=== PATIENT | female | born 1970 | race Two or more races ===

== ENCOUNTER 2024-01-07 13:40 | Outpatient (AMB) | payer MEDICAID, SELFPAY ==
--- NOTE | 2024-01-07 13:50 | PD.RESCLINIC ---
Vital Signs 01/07/24 13:51 Height 1.57 m Height Method Stated Weight 83.971 kg Weight Measurement Method Standing Scale BMI 34.0 BP 129/74 Blood Pressure Source Automatic Cuff Blood Pressure Location Left Upper Arm Position Sitting Respiration 18 Pulse 79 Pulse Source Monitor Temp 98.2 F Temp Source Temporal Artery Scan Pulse Oximetry (%) 97 Oxygen Delivery Method Room Air Allergies/Meds Allergies & Medications Allergies No Known Allergies Allergy (Verified 03/13/24 13:21) Medication Reconciliation pen needle, diabetic 32 gauge x 1/4 (Comfort EZ Pen [place]) #100 ea 01/07/24 [Rx Confirmed 03/13/24] blood-glucose meter,continuous (FreeStyle Cecilia 3 [place]) #1 ea 01/14/24 [Rx Confirmed 03/13/24] blood-glucose sensor (FreeStyle Cecilia 3 Sensor device) #2 ea 01/14/24 [Rx Confirmed 03/13/24] atorvastatin 80 mg tablet 80 mg PO QHS #60 tabs 01/27/24 [Rx Confirmed 03/13/24] dapagliflozin propanediol 10 mg tablet 10 mg PO QAM #30 tabs 01/27/24 [Rx Confirmed 03/13/24] famotidine 20 mg tablet 20 mg PO QDAY #30 tabs 01/27/24 [Rx Confirmed 03/13/24] hydrochlorothiazide 12.5 mg capsule 12.5 mg PO QDAY 30 days #30 caps 01/27/24 [Rx Confirmed 03/13/24] insulin degludec 100 unit/mL (3 mL) subcutaneous pen (Tresiba FlexTouch U-100 insulin) 40 unit (0.4 mL) subcut QHS #15 mL 01/27/24 [Rx Confirmed 03/13/24] losartan 100 mg tablet 100 mg PO QDAY 2 months #60 tabs 01/27/24 [Rx Confirmed 03/13/24] metformin 1,000 mg tablet,extended release 24hr (osmotic) 1,000 mg PO BID #60 tabs 01/27/24 [Rx Confirmed 03/13/24] metoprolol tartrate 25 mg tablet 25 mg PO BID 2 months #120 tabs 01/27/24 [Rx Confirmed 03/13/24] pregabalin 75 mg capsule (Lyrica) 150 mg (2 x 75 mg) PO BID 2 months #240 caps 01/27/24 [Rx Confirmed 03/13/24] MA Intake Visit Data Collection New Patient or Established: Established Patient (seen at [facility] within 3 years) Seen by Clinical Staff ONLY (RN/MA): No Oil Gas And Pipe Tester Required: No PCP or OBGYN visit in last 3 months: Yes Do You Feel Safe at Home: Yes Authorities Contacted: N/A Smoking Status Smoking Status: Never smoker Immunization / Flu Flu Vaccine in the Last 12 Months: No Flu Vaccine Exclusion Criteria: Refused by Patient Past Medical History Social History SMOKING STATUS: Smoking status: Never smoker Travel Risk Travel Hx Recent Travel: No Patient Portal Questionaires Social History Tobacco History Smoking Status: Never smoker Domestic Abuse History Do You Feel Safe at Home: Yes Review of Systems Report any current symptoms Only answer those that you have currently: Past Medical History Past Medical History Have you ever been diagnosed with any of the following: History of Present Illness HPI Narrative This is a 53 y/o F with PMH of DMT2, HTN, peripheral neuropathy and obesity. This patient is not new to the practice however is new to me. SHe is a pleasant lady, retired that takes care of her granddaughter. I take care of her and daughter as well. Today patient complains of blood sugar control and constant headache. No other symptoms. 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 Sensation grossly intact. Assessment & Plan Diagnosis / Problem List (1) Diabetes type 2, uncontrolled: Status: Acute Qualifiers: Glycemic state: with hyperglycemia Qualified Code(s): E11.65 - Type 2 diabetes mellitus with hyperglycemia Assessment & Plan: A1c 11.5 on 01/19 ACR 6 on 01/19 Plan: start farxiga start tresiba 30u at HS start metformin 1000mg BID CGM sent repeat a1c in 3 months (2) Hyperlipidemia: Status: Acute Assessment & Plan: trig 177 LDL 101 Plan: cont atorvastatin 80mg HS repeat LP in 3 months (3) Hypertension: Status: Acute Assessment & Plan: controlled Plan: cont losartan 100mg QD Orders: Orders Comprehensive Metabolic Panel 4 Weeks E78.5 - Hyperlipidemia, unspecified, I10 - Essential (primary) hypertension, E11.65 - Type 2 diabetes mellitus with hyperglycemia Ambulatory Hemoglobin A1C 4 Weeks E11.65 - Type 2 diabetes mellitus with hyperglycemia, E78.5 - Hyperlipidemia, unspecified, I10 - Essential (primary) hypertension Lipid Panel 4 Weeks CBC 4 Weeks E78.5 - Hyperlipidemia, unspecified, I10 - Essential (primary) hypertension, E11.65 - Type 2 diabetes mellitus with hyperglycemia Thyroid Stimulating Hormone 4 Weeks E78.5 - Hyperlipidemia, unspecified, E11.65 - Type 2 diabetes mellitus with hyperglycemia Free T4 (Free Thyroxine) 4 Weeks E78.5 - Hyperlipidemia, unspecified, E11.65 - Type 2 diabetes mellitus with hyperglycemia Ambulatory Hemoglobin A1C 01/07/24 E78.5 - Hyperlipidemia, unspecified, I10 - Essential (primary) hypertension, E11.65 - Type 2 diabetes mellitus with hyperglycemia Additional Assessment Attending note: I, Rodriguez Johnston MD, attest that I was physically present for the castillo portions of the service and evaluated the patient with the resident and I reviewed and discussed the case with the resident and agree with the resident's findings and plans of care as documented above. Follow-up visit. Diabetes self-care reviewed including diet, exercise, footcare, eye care. Most recent hemoglobin A1c of 11.5. Patient regimen changed to Tresiba 30 units nightly, metformin 1000 units twice daily and Farxiga. We will order a CGM today. Recheck labs in 3 months. Continue atorvastatin 80 mg nightly for lipid control. Blood pressure under reasonable control with losartan 100 mg daily. Rodriguez Johnston MD Physician Billing Established Patient Established Patient: E/M Level 3-CPT 96939 Office Procedures [facility] Level of Care Nursing/Assessment Patient Status: Established Patient Nursing Assessment/Reassessment: Medication Reconciliation, Update PMH in EMR and Vital Signs Coordination of Care: Complex Care and Chronic Disease 1-5, Consent,records obtained, informed consent, Lab and Imaging orders and Staff clarify orders Established Patient Charge Established Patient Point Assignment: 85 Established Patient Point Charge: Level 3 (80-115)
[2024-01-07 13:51] VITALS: BP 129/74; PULSE 79; RESP 18; TEMP 36.8; O2SAT 97; BMI 34.0
== END 2024-01-07 14:18 | disposition home or self-care (01) ==
LOC: HODAHC 13:40
PROVIDERS: Supervising Provider Internal Medicine; Visit Provider Student in an Organized Health Care Education/Training Program
DX: E11.65 Type 2 diabetes mellitus with hyperglycemia (principal); E78.5 Hyperlipidemia, unspecified; I10 Essential (primary) hypertension; Z79.4 Long term (current) use of insulin
CPT/HCPCS: 99213; G0463

== ENCOUNTER 2024-01-14 13:35 | Outpatient (AMB) | payer MEDICAID, SELFPAY ==
[2024-01-14 13:41] VITALS: BP 128/76; PULSE 73; RESP 19; TEMP 36.5; O2SAT 96; BMI 34.1
--- NOTE | 2024-01-14 13:41 | PD.RESCLINIC ---
Vital Signs 01/14/24 13:41 Height 1.57 m Height Method Stated Weight 84.085 kg Weight Measurement Method Standing Scale BMI 34.1 BP 128/76 Blood Pressure Source Automatic Cuff Blood Pressure Location Left Upper Arm Position Sitting Respiration 19 Pulse 73 Pulse Source Monitor Temp 97.7 F Temp Source Oral Pulse Oximetry (%) 96 Oxygen Delivery Method Room Air Allergies/Meds Allergies & Medications Allergies No Known Allergies Allergy (Verified 03/13/24 13:21) Medication Reconciliation pen needle, diabetic 32 gauge x 1/4 (Comfort EZ Pen [place]) #100 ea 01/07/24 [Rx Confirmed 03/13/24] blood-glucose meter,continuous (FreeStyle Cecilia 3 [place]) #1 ea 01/14/24 [Rx Confirmed 03/13/24] blood-glucose sensor (FreeStyle Cecilia 3 Sensor device) #2 ea 01/14/24 [Rx Confirmed 03/13/24] atorvastatin 80 mg tablet 80 mg PO QHS #60 tabs 01/27/24 [Rx Confirmed 03/13/24] dapagliflozin propanediol 10 mg tablet 10 mg PO QAM #30 tabs 01/27/24 [Rx Confirmed 03/13/24] famotidine 20 mg tablet 20 mg PO QDAY #30 tabs 01/27/24 [Rx Confirmed 03/13/24] hydrochlorothiazide 12.5 mg capsule 12.5 mg PO QDAY 30 days #30 caps 01/27/24 [Rx Confirmed 03/13/24] insulin degludec 100 unit/mL (3 mL) subcutaneous pen (Tresiba FlexTouch U-100 insulin) 40 unit (0.4 mL) subcut QHS #15 mL 01/27/24 [Rx Confirmed 03/13/24] losartan 100 mg tablet 100 mg PO QDAY 2 months #60 tabs 01/27/24 [Rx Confirmed 03/13/24] metformin 1,000 mg tablet,extended release 24hr (osmotic) 1,000 mg PO BID #60 tabs 01/27/24 [Rx Confirmed 03/13/24] metoprolol tartrate 25 mg tablet 25 mg PO BID 2 months #120 tabs 01/27/24 [Rx Confirmed 03/13/24] pregabalin 75 mg capsule (Lyrica) 150 mg (2 x 75 mg) PO BID 2 months #240 caps 01/27/24 [Rx Confirmed 03/13/24] MA Intake Visit Data Collection New Patient or Established: Established Patient (seen at [facility] within 3 years) Seen by Clinical Staff ONLY (RN/GIOVANNA): No Pain Present Currently: No Pain scale:: 0 Pain Scale Used: Lujan-Steiner/Numerical PCP or OBGYN visit in last 3 months: Yes Do You Feel Safe at Home: Yes Authorities Contacted: N/A Smoking Status Smoking Status: Never smoker Immunization / Flu Flu Vaccine in the Last 12 Months: No Flu Vaccine Exclusion Criteria: No Exclusion Criteria Past Medical History Social History SMOKING STATUS: Smoking status: Never smoker Patient Portal Questionaires Social History Tobacco History Smoking Status: Never smoker Domestic Abuse History Do You Feel Safe at Home: Yes Review of Systems Report any current symptoms Only answer those that you have currently: Past Medical History Past Medical History Have you ever been diagnosed with any of the following: History of Present Illness HPI Narrative This is a 53 y/o F with PMH of DMT2, HTN, peripheral neuropathy and obesity. This patient is not new to the practice however is new to me. SHe is a pleasant lady, retired that takes care of her granddaughter. I take care of her and daughter as well. Today patient complains of blood sugar control and constant headache. No other symptoms. 01/13: Patient here to today for follow up. Glucose remains high. No additional problems. 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 Sensation grossly intact. Assessment & Plan Diagnosis / Problem List (1) Diabetes type 2, uncontrolled: Status: Acute Qualifiers: Glycemic state: with hyperglycemia Qualified Code(s): E11.65 - Type 2 diabetes mellitus with hyperglycemia Assessment & Plan: A1c 11.5 on 01/19 ACR 6 on 01/19 Plan: start farxiga start tresiba 30u at HS start metformin 1000mg BID CGM sent repeat a1c in 3 months (2) Hyperlipidemia: Status: Acute Assessment & Plan: trig 177 LDL 101 Plan: cont atorvastatin 80mg HS repeat LP in 3 months (3) Hypertension: Status: Acute Assessment & Plan: controlled Plan: cont losartan 100mg QD Additional Assessment Attending note: I, Rodriguez Johnston MD, attest that I was physically present for the castillo portions of the service and evaluated the patient with the resident and I reviewed and discussed the case with the resident and agree with the resident's findings and plans of care as documented above. 1 week follow-up. Has tolerated new medications. Instructed on CGM use. Diabetes self-care reviewed including diet, exercise, footcare, eye care. Blood sugar readings remaining high but up to see improvement with new medications. Blood pressure remains well-controlled and in good range on angiotensin receptor joe. Follow-up in 3 months. Rodriguez Johnston MD Physician Billing Established Patient Established Patient: E/M Level 3-CPT 76822 Office Procedures [facility] Level of Care Nursing/Assessment Patient Status: Established Patient Nursing Assessment/Reassessment: Medication Reconciliation, Update PMH in EMR and Vital Signs Coordination of Care: Complex Care and Chronic Disease 1-5, Education Complex Pt/Fam, Results/Orders obtained and Staff clarify orders Established Patient Charge Established Patient Point Assignment: 90 Established Patient Point Charge: EP Level 3 (80-115)
== END 2024-01-14 14:25 | disposition home or self-care (01) ==
LOC: HODAHC 13:35
PROVIDERS: PCP Student in an Organized Health Care Education/Training Program; Referring Provider Student in an Organized Health Care Education/Training Program; Supervising Provider Internal Medicine; Visit Provider Student in an Organized Health Care Education/Training Program
DX: E11.65 Type 2 diabetes mellitus with hyperglycemia (principal); E78.5 Hyperlipidemia, unspecified; I10 Essential (primary) hypertension
CPT/HCPCS: 99213; G0463

== ENCOUNTER 2024-03-03 14:27 | Outpatient (AMB) | payer MEDICAID, SELFPAY ==
[2024-03-03 14:21] VITALS: BP 149/72; PULSE 68; RESP 18; TEMP 36.2; O2SAT 97; BMI 35.2
--- NOTE | 2024-03-03 14:21 | ACNOTE_ITS ---
Vital Signs 03/03/24 14:21 Height 1.57 m Height Method Stated Weight 86.693 kg Weight Measurement Method Standing Scale BMI 35.2 BP 149/72 H Blood Pressure Source Automatic Cuff Blood Pressure Location Left Upper Arm Position Sitting Respiration 18 Pulse 68 Pulse Source Monitor Temp 97.1 F Temp Source Oral Pulse Oximetry (%) 97 Oxygen Delivery Method Room Air Allergies/Meds Allergies & Medications Allergies No Known Allergies Allergy (Verified 03/13/24 13:21) Medication Reconciliation pen needle, diabetic 32 gauge x 1/4 (Comfort EZ Pen [place]) #100 ea 01/07/24 [Rx Confirmed 03/13/24] blood-glucose meter,continuous (FreeStyle Cecilia 3 [place]) #1 ea 01/14/24 [Rx Confirmed 03/13/24] blood-glucose sensor (FreeStyle Cecilia 3 Sensor device) #2 ea 01/14/24 [Rx Confirmed 03/13/24] atorvastatin 80 mg tablet 80 mg PO QHS #60 tabs 01/27/24 [Rx Confirmed 03/13/24] dapagliflozin propanediol 10 mg tablet 10 mg PO QAM #30 tabs 01/27/24 [Rx Confirmed 03/13/24] famotidine 20 mg tablet 20 mg PO QDAY #30 tabs 01/27/24 [Rx Confirmed 03/13/24] hydrochlorothiazide 12.5 mg capsule 12.5 mg PO QDAY 30 days #30 caps 01/27/24 [Rx Confirmed 03/13/24] insulin degludec 100 unit/mL (3 mL) subcutaneous pen (Tresiba FlexTouch U-100 insulin) 40 unit (0.4 mL) subcut QHS #15 mL 01/27/24 [Rx Confirmed 03/13/24] losartan 100 mg tablet 100 mg PO QDAY 2 months #60 tabs 01/27/24 [Rx Confirmed 03/13/24] metformin 1,000 mg tablet,extended release 24hr (osmotic) 1,000 mg PO BID #60 tabs 01/27/24 [Rx Confirmed 03/13/24] metoprolol tartrate 25 mg tablet 25 mg PO BID 2 months #120 tabs 01/27/24 [Rx Confirmed 03/13/24] pregabalin 75 mg capsule (Lyrica) 150 mg (2 x 75 mg) PO BID 2 months #240 caps 01/27/24 [Rx Confirmed 03/13/24] MA Intake Visit Data Collection New Patient or Established: Established Patient (seen at [facility] within 3 years) Seen by Clinical Staff ONLY (RN/GIOVANNA): No Pain Present Currently: No Demolition Specialist Required: Yes PCP or OBGYN visit in last 3 months: Yes Smoking Status Smoking Status: Never smoker Immunization / Flu Flu Vaccine in the Last 12 Months: Yes Flu Vaccine Exclusion Criteria: Already Received Past Medical History Social History SMOKING STATUS: Smoking status: Never smoker Patient Portal Questionaires Social History Tobacco History Smoking Status: Never smoker Review of Systems Report any current symptoms Only answer those that you have currently: Past Medical History Past Medical History Have you ever been diagnosed with any of the following: History of Present Illness HPI Narrative This is a 53 y/o F with PMH of DMT2, HTN, peripheral neuropathy and obesity. This patient is not new to the practice however is new to me. SHe is a pleasant lady, retired that takes care of her granddaughter. I take care of her and daughter as well. Today patient complains of blood sugar control and constant headache. No other symptoms. 01/13: Patient here to today for follow up. Glucose remains high, fasting glucose in the 200s. No additional problems. 01/26: Patient is here today for diabetes follow up. Patient fasting glucose numbers are normalizing. Fasting glucose in the 120s. No more headaches. Patient feels better in the mornings. 03/03/24: Patient here for f/u. Feels much better, does complain of headaches and L eye pain. Patient does not have previous hx of glaucoma. Her glucose is better controlled, fasting in the 130s. Patient is complaint with medication. 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 Sensation grossly intact. Assessment & Plan Diagnosis / Problem List (1) Diabetes type 2, uncontrolled: Status: Acute Qualifiers: Glycemic state: with hyperglycemia Qualified Code(s): E11.65 - Type 2 diabetes mellitus with hyperglycemia Assessment & Plan: A1c 11.5 on 01/19 ACR 6 on 01/19 fasting glucose numbers improving ave 120s Plan: cont farxiga cont tresiba 30u at HS cont metformin 1000mg BID CGM sent repeat a1c in 3 months (2) Hyperlipidemia: Status: Acute Assessment & Plan: trig 177 LDL 101 Plan: cont atorvastatin 80mg HS repeat LP in 3 months (3) Hypertension: Status: Acute Assessment & Plan: controlled Plan: cont losartan 100mg QD (4) Left eye pain: Status: Acute Assessment & Plan: L eye pain ,mild sensitivity to light concern for glaucoma Plan: -ophthalmology referral (5) Insulin dependent diabetes mellitus: Status: Acute Assessment & Plan: see above Orders: Referrals Ophthalmology H57.12 - Ocular pain, left eye Additional Assessment Attending note: I, Rodriguez Johnston MD, attest that I was physically present for the castillo portions of the service and evaluated the patient with the resident and I reviewed and discussed the case with the resident and agree with the resident's findings and plans of care as documented above. Follow-up visit. Diabetes self- care reviewed including diet, exercise, footcare, eye care. Fasting blood sugars are improving. Continue present regimen. Will repeat hemoglobin A1c in 3 months. Tolerating atorvastatin. Blood pressure under reasonable control. On angiotensin receptor joe. Patient complaining of some mild left eye pain with light sensitivity. We will make a referral to ophthalmology. Rodriguez Johnston MD Physician Billing Established Patient Established Patient: E/M Level 3-CPT 73335 Office Procedures [facility] Level of Care Nursing/Assessment Patient Status: Established Patient Nursing Assessment/Reassessment: Medication Reconciliation, Update PMH in EMR and Vital Signs Coordination of Care: Complex Care and Chronic Disease 1-5, Consent,records obtained, informed consent, Education Simp Pt/Fam, 1 Ins Authorization, Lab and Imaging orders, Ref for ancillary service and Staff clarify orders Established Patient Charge Established Patient Point Assignment: 135 Established Patient Point Charge: Level 4 (120-155)
== END 2024-03-03 15:07 | disposition home or self-care (01) ==
LOC: HODAHC 14:27
PROVIDERS: PCP Student in an Organized Health Care Education/Training Program; Referring Provider Student in an Organized Health Care Education/Training Program; Supervising Provider Internal Medicine; Visit Provider Student in an Organized Health Care Education/Training Program
DX: H57.12 Ocular pain, left eye (principal); R51.9 Headache, unspecified; E11.65 Type 2 diabetes mellitus with hyperglycemia; Z79.84 Long term (current) use of oral hypoglycemic drugs; Z79.4 Long term (current) use of insulin; E78.5 Hyperlipidemia, unspecified; I10 Essential (primary) hypertension
CPT/HCPCS: 99214; G0463

== ENCOUNTER 2024-03-31 13:34 | Outpatient (AMB) | payer MEDICAID, SELFPAY ==
--- NOTE | 2024-03-31 13:55 | PD.RESCLINIC ---
Vital Signs 03/31/24 13:56 Height 1.7 m Height Method Stated Weight 84.992 kg Weight Measurement Method Standing Scale BMI 29.4 BP 133/75 H Blood Pressure Source Automatic Cuff Blood Pressure Location Left Upper Arm Position Sitting Respiration 18 Pulse 74 Pulse Source Monitor Temp 98.2 F Temp Source Temporal Artery Scan Pulse Oximetry (%) 95 Oxygen Delivery Method Room Air Allergies/Meds Allergies & Medications Allergies No Known Allergies Allergy (Verified 03/31/24 13:56) Medication Reconciliation pen needle, diabetic 32 gauge x 1/4 (Comfort EZ Pen [place]) #100 ea 01/07/24 [Rx Confirmed 03/31/24] blood-glucose meter,continuous (FreeStyle Cecilia 3 [place]) #1 ea 01/14/24 [Rx Confirmed 03/31/24] blood-glucose sensor (FreeStyle Cecilia 3 Sensor device) #2 ea 01/14/24 [Rx Confirmed 03/31/24] atorvastatin 80 mg tablet 80 mg PO QHS #60 tabs 01/27/24 [Rx Confirmed 03/31/24] dapagliflozin propanediol 10 mg tablet 10 mg PO QAM #30 tabs 01/27/24 [Rx Confirmed 03/31/24] famotidine 20 mg tablet 20 mg PO QDAY #30 tabs 01/27/24 [Rx Confirmed 03/31/24] hydrochlorothiazide 12.5 mg capsule 12.5 mg PO QDAY 30 days #30 caps 01/27/24 [Rx Confirmed 03/31/24] insulin degludec 100 unit/mL (3 mL) subcutaneous pen (Tresiba FlexTouch U-100 insulin) 40 unit (0.4 mL) subcut QHS #15 mL 01/27/24 [Rx Confirmed 03/31/24] losartan 100 mg tablet 100 mg PO QDAY 2 months #60 tabs 01/27/24 [Rx Confirmed 03/31/24] metformin 1,000 mg tablet,extended release 24hr (osmotic) 1,000 mg PO BID #60 tabs 01/27/24 [Rx Confirmed 03/31/24] metoprolol tartrate 25 mg tablet 25 mg PO BID 2 months #120 tabs 01/27/24 [Rx Confirmed 03/31/24] pregabalin 75 mg capsule (Lyrica) 150 mg (2 x 75 mg) PO BID 2 months #240 caps 01/27/24 [Rx Confirmed 03/31/24] MA Intake Visit Data Collection New Patient or Established: Established Patient (seen at [facility] within 3 years) Seen by Clinical Staff ONLY (RN/MA): Yes Pain Present Currently: No Pain Scale Used: Lujan-Steiner/Numerical Formula Checker Required: Yes PCP or OBGYN visit in last 3 months: Yes Hx Now: No Do You Feel Safe at Home: Yes Authorities Contacted: N/A Smoking Status Smoking Status: Never smoker Immunization / Flu Flu Vaccine in the Last 12 Months: No Flu Vaccine Exclusion Criteria: No Exclusion Criteria Past Medical History Social History SMOKING STATUS: Smoking status: Never smoker Patient Portal Questionaires Social History Tobacco History Smoking Status: Never smoker Domestic Abuse History Do You Feel Safe at Home: Yes Review of Systems Report any current symptoms Only answer those that you have currently: Past Medical History Past Medical History Have you ever been diagnosed with any of the following: History of Present Illness HPI Narrative Encounter opened in error. Patient not seen on this date of service by physician. Assessment & Plan Additional Assessment Encounter opened in error. Patient not seen on this date of service by physician. Rodriguez Johnston MD Office Procedures [facility] Level of Care Nursing/Assessment Patient Status: Established Patient Nursing Assessment/Reassessment: Medication Reconciliation, Update PMH in EMR and Vital Signs Coordination of Care: Staff clarify orders Established Patient Charge Established Patient Point Assignment: 40 Established Patient Point Charge: EP Level 2 (40-75)
[2024-03-31 13:56] VITALS: BP 133/75; PULSE 74; RESP 18; TEMP 36.8; O2SAT 95; BMI 29.4
== END 2024-03-31 15:30 | disposition home or self-care (01) ==
LOC: HODAHC 13:34
PROVIDERS: PCP Student in an Organized Health Care Education/Training Program; Referring Provider Student in an Organized Health Care Education/Training Program; Supervising Provider Internal Medicine; Visit Provider Student in an Organized Health Care Education/Training Program
DX: Z76.89 Persons encountering health services in other specified circumstances (principal)
CPT/HCPCS: 99212; 99213; G0463

== ENCOUNTER 2024-04-07 14:27 | Outpatient (AMB) | payer MEDICAID, SELFPAY ==
[2024-04-07 14:14] VITALS: BP 123/73; PULSE 65; RESP 18; TEMP 36.8; O2SAT 95; BMI 34.4
--- NOTE | 2024-04-07 14:14 | ACNOTE_ITS ---
Vital Signs 04/07/24 14:14 Height 1.57 m Height Method Stated Weight 84.992 kg Weight Measurement Method Standing Scale BMI 34.4 BP 123/73 Blood Pressure Source Automatic Cuff Blood Pressure Location Left Upper Arm Position Sitting Respiration 18 Pulse 65 Pulse Source Monitor Temp 98.3 F Temp Source Oral Pulse Oximetry (%) 95 Oxygen Delivery Method Room Air Allergies/Meds Allergies & Medications Allergies No Known Allergies Allergy (Verified 05/05/24 13:50) Medication Reconciliation blood-glucose meter,continuous (FreeStyle Cecilia 3 [place]) #1 ea 01/14/24 [Rx Confirmed 05/05/24] blood-glucose sensor (FreeStyle Cecilia 3 Sensor device) #2 ea 01/14/24 [Rx Confirmed 05/05/24] atorvastatin 80 mg tablet 80 mg PO QHS #60 tabs 04/07/24 [Rx Confirmed 05/05/24] dapagliflozin propanediol 10 mg tablet 10 mg PO QAM #30 tabs 04/07/24 [Rx Confirmed 05/05/24] diclofenac sodium 1 % topical gel (Aleve (diclofenac)) 4 g topical QID #100 grams 04/07/24 [Rx Confirmed 05/05/24] insulin degludec 100 unit/mL (3 mL) subcutaneous pen (Tresiba FlexTouch U-100 insulin) 40 unit (0.4 mL) subcut QHS #15 mL 04/07/24 [Rx Confirmed 05/05/24] losartan 100 mg tablet 100 mg PO QDAY 2 months #60 tabs 04/07/24 [Rx Confirmed 05/05/24] metformin 1,000 mg tablet,extended release 24hr (osmotic) 1,000 mg PO BID #60 tabs 04/07/24 [Rx Confirmed 05/05/24] metoprolol tartrate 25 mg tablet 25 mg PO BID 2 months #120 tabs 04/07/24 [Rx Confirmed 05/05/24] omeprazole 40 mg capsule,delayed release 40 mg PO QDAY #30 caps 04/07/24 [Rx Confirmed 05/05/24] pen needle, diabetic 32 gauge x 1/4 (Comfort EZ Pen [place]) #100 ea 04/07/24 [Rx Confirmed 05/05/24] acetaminophen 650 mg tablet,extended release 650 mg PO Q8H PRN joint pain #90 tabs 04/21/24 [Rx Confirmed 02/07/25] hydrochlorothiazide 12.5 mg capsule 25 mg (2 x 12.5 mg) PO QDAY 30 days #60 caps 04/21/24 [Rx Confirmed 05/05/24] insulin lispro 100 unit/mL subcutaneous pen, sensor (Humalog Tempo Pen (U-100) Insulin) 3 unit (0.03 mL) subcut TID #15 mL 04/21/24 [Rx Confirmed 05/05/24] lidocaine 5 % topical patch 3 patch topical QDAY #30 ea 04/21/24 [Rx Confirmed 05/05/24] gabapentin 100 mg capsule 300 mg (3 x 100 mg) PO TID #90 caps 05/05/24 [Rx] GIOVANNA Intake Visit Data Collection New Patient or Established: Established Patient (seen at [facility] within 3 years) Seen by Clinical Staff ONLY (RN/GIOVANNA): No Pain Present Currently: No Pain scale:: 0 Pain Scale Used: Lujan-Steiner/Numerical Cigar Packing Examiner Required: Yes PCP or OBGYN visit in last 3 months: Yes Hx Now: No Do You Feel Safe at Home: Yes Authorities Contacted: N/A Smoking Status Smoking Status: Never smoker Immunization / Flu Flu Vaccine in the Last 12 Months: No Flu Vaccine Exclusion Criteria: No Exclusion Criteria Past Medical History Social History SMOKING STATUS: Smoking status: Never smoker Patient Portal Questionaires Social History Tobacco History Smoking Status: Never smoker Domestic Abuse History Do You Feel Safe at Home: Yes Review of Systems Report any current symptoms Only answer those that you have currently: Past Medical History Past Medical History Have you ever been diagnosed with any of the following: History of Present Illness HPI Narrative This is a 53 y/o F with PMH of DMT2, HTN, peripheral neuropathy and obesity. This patient is not new to the practice however is new to me. SHe is a pleasant lady, retired that takes care of her granddaughter. I take care of her and daughter as well. Today patient complains of blood sugar control and constant headache. No other symptoms. 01/13: Patient here to today for follow up. Glucose remains high, fasting glucose in the 200s. No additional problems. 01/26: Patient is here today for diabetes follow up. Patient fasting glucose numbers are normalizing. Fasting glucose in the 120s. No more headaches. Patient feels better in the mornings. 03/03/24: Patient here for f/u. Feels much better, does complain of headaches and L eye pain. Patient does not have previous hx of glaucoma. Her glucose is better controlled, fasting in the 130s. Patient is complaint with medication. 04/07/24: Patient here for follow up. Denies any acute symptoms today. Glucose levels are still midly elevated. Pending a1c level. 05/05/2024: Patient her for follow up after change of medications. Patient feels much better today. Only complains of burning sensation of the sole of the feet. Headaches have improved. Patient is tolerating meal time insulin, no episode of hypoglycemia. 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 Sensation grossly intact. Assessment & Plan Diagnosis / Problem List (1) Arthritis: Status: Acute (2) Insulin dependent diabetes mellitus: Status: Acute Assessment & Plan: uncontrolled, A1c was above 10 Home glucose log shows post-pandrial glucose below 180 after adding meal time insulin Plan: -decrease degludec from 40u to 35u -cont lispro 3u at meal time -cont metformin -cont log -repeat A1c and ACR in 3 months (3) Diabetic neuropathy: Status: Acute Qualifiers: Diabetes mellitus type: type 2 Diabetes mellitus complication detail: with other neurological complication Qualified Code(s): E11.49 - Type 2 diabetes mellitus with other diabetic neurological complication Assessment & Plan: BLE burning sensation of the soles, worse at night Plan: -increase gabapentin to 300mg TID -if patient fails we shall consider lyrica (4) Hyperlipidemia: Status: Acute Assessment & Plan: well controlled Plan: -cont statin therapy (5) Hypertension: Status: Acute Assessment & Plan: controlled after increasing HCTZ Plan: -continue current management -lifestyle modifications were recommended (6) GERD (gastroesophageal reflux disease): Status: Acute Qualifiers: Esophagitis presence: without esophagitis Qualified Code(s): K21.9 - Gastro-esophageal reflux disease without esophagitis Assessment & Plan: improvement in nocturnal cough Plan: -continue famotidine as prescribed Office Procedures [facility] Level of Care Nursing/Assessment Patient Status: Established Patient Nursing Assessment/Reassessment: Medication Reconciliation, Update PMH in EMR and Vital Signs Coordination of Care: Complex Care and Chronic Disease 1-5, Consent,records obtained, informed consent, Education Simp Pt/Fam and Staff clarify orders Established Patient Charge Established Patient Point Assignment: 85 Established Patient Point Charge: Level 3 (80-115)
== END 2024-04-07 14:54 | disposition home or self-care (01) ==
LOC: HODAHC 14:27
PROVIDERS: PCP Student in an Organized Health Care Education/Training Program; Referring Provider Student in an Organized Health Care Education/Training Program; Supervising Provider Internal Medicine; Visit Provider Student in an Organized Health Care Education/Training Program
DX: E11.40 Type 2 diabetes mellitus with diabetic neuropathy, unspecified (principal); E78.5 Hyperlipidemia, unspecified; Z79.4 Long term (current) use of insulin; I10 Essential (primary) hypertension; M19.90 Unspecified osteoarthritis, unspecified site
CPT/HCPCS: 99213; G0463

== ENCOUNTER 2024-04-21 14:08 | Outpatient (AMB) | payer MEDICAID, SELFPAY ==
[2024-04-21 14:29] VITALS: BP 144/76; PULSE 63; RESP 17; TEMP 36.6; O2SAT 97; BMI 34.6
--- NOTE | 2024-04-21 14:29 | PD.RESCLINIC ---
Vital Signs 04/21/24 14:29 Height 1.57 m Height Method Stated Weight 85.332 kg Weight Measurement Method Standing Scale BMI 34.6 BP 144/76 H Blood Pressure Source Automatic Cuff Blood Pressure Location Left Upper Arm Position Sitting Respiration 17 Pulse 63 Pulse Source Monitor Temp 97.8 F Temp Source Oral Pulse Oximetry (%) 97 Oxygen Delivery Method Room Air Allergies/Meds Allergies & Medications Allergies No Known Allergies Allergy (Verified 06/02/24 14:43) Medication Reconciliation blood-glucose meter,continuous (FreeStyle Cecilia 3 [place]) #1 ea 01/14/24 [Rx Confirmed 06/02/24] blood-glucose sensor (FreeStyle Cecilia 3 Sensor device) #2 ea 01/14/24 [Rx Confirmed 06/02/24] atorvastatin 80 mg tablet 80 mg PO QHS #60 tabs 04/07/24 [Rx Confirmed 06/02/24] dapagliflozin propanediol 10 mg tablet 10 mg PO QAM #30 tabs 04/07/24 [Rx Confirmed 06/02/24] diclofenac sodium 1 % topical gel (Aleve (diclofenac)) 4 g topical QID #100 grams 04/07/24 [Rx Confirmed 06/02/24] insulin degludec 100 unit/mL (3 mL) subcutaneous pen (Tresiba FlexTouch U-100 insulin) 40 unit (0.4 mL) subcut QHS #15 mL 04/07/24 [Rx Confirmed 06/02/24] losartan 100 mg tablet 100 mg PO QDAY 2 months #60 tabs 04/07/24 [Rx Confirmed 06/02/24] omeprazole 40 mg capsule,delayed release 40 mg PO QDAY #30 caps 04/07/24 [Rx Confirmed 06/02/24] pen needle, diabetic 32 gauge x 1/4 (Comfort EZ Pen [place]) #100 ea 04/07/24 [Rx Confirmed 06/02/24] acetaminophen 650 mg tablet,extended release 650 mg PO Q8H PRN joint pain #90 tabs 04/21/24 [Rx Confirmed 06/02/24] hydrochlorothiazide 12.5 mg capsule 25 mg (2 x 12.5 mg) PO QDAY 30 days #60 caps 04/21/24 [Rx Confirmed 06/02/24] insulin lispro 100 unit/mL subcutaneous pen, sensor (Humalog Tempo Pen (U-100) Insulin) 3 unit (0.03 mL) subcut TID #15 mL 04/21/24 [Rx Confirmed 06/02/24] lidocaine 5 % topical patch 3 patch topical QDAY #30 ea 04/21/24 [Rx Confirmed 06/02/24] gabapentin 100 mg capsule 300 mg (3 x 100 mg) PO TID #90 caps 06/02/24 [Rx Confirmed 06/02/24] metformin 1,000 mg tablet,extended release 24hr (osmotic) 1,000 mg PO BID #60 tabs 06/02/24 [Rx Confirmed 06/02/24] metoprolol tartrate 25 mg tablet 25 mg PO BID 1 month #60 tabs 06/02/24 [Rx Confirmed 06/02/24] MA Intake Visit Data Collection New Patient or Established: Established Patient (seen at [facility] within 3 years) Seen by Clinical Staff ONLY (RN/GIOVANNA): No Pain Present Currently: No Pain scale:: 0 Pain Scale Used: Lujan-Steiner/Numerical Associate Of Science In Nursing Required: Yes PCP or OBGYN visit in last 3 months: Yes Hx Now: No Do You Feel Safe at Home: Yes Authorities Contacted: N/A Smoking Status Smoking Status: Never smoker Immunization / Flu Flu Vaccine in the Last 12 Months: No Flu Vaccine Exclusion Criteria: No Exclusion Criteria Past Medical History Social History SMOKING STATUS: Smoking status: Never smoker Patient Portal Questionaires Social History Tobacco History Smoking Status: Never smoker Domestic Abuse History Do You Feel Safe at Home: Yes Review of Systems Report any current symptoms Only answer those that you have currently: Past Medical History Past Medical History Have you ever been diagnosed with any of the following: History of Present Illness HPI Narrative This is a 53 y/o F with PMH of DMT2, HTN, peripheral neuropathy and obesity. This patient is not new to the practice however is new to me. SHe is a pleasant lady, retired that takes care of her granddaughter. I take care of her and daughter as well. Today patient complains of blood sugar control and constant headache. No other symptoms. 01/13: Patient here to today for follow up. Glucose remains high, fasting glucose in the 200s. No additional problems. 01/26: Patient is here today for diabetes follow up. Patient fasting glucose numbers are normalizing. Fasting glucose in the 120s. No more headaches. Patient feels better in the mornings. 03/03/24: Patient here for f/u. Feels much better, does complain of headaches and L eye pain. Patient does not have previous hx of glaucoma. Her glucose is better controlled, fasting in the 130s. Patient is complaint with medication. 04/21/24: Patient here for f/u visit. BP elevated today. Home glucose readings reviewed. Tolerating meds. Reports medication compliance. 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 Sensation grossly intact. Assessment & Plan Diagnosis / Problem List (1) Insulin dependent diabetes mellitus: Status: Acute Assessment & Plan: A1c on 03/2024 is 11.8 Patient is currently on insulin Tresiba 40 units during nighttime, lispro 3 units with each meal, metformin thousand Mg p.o. twice daily, dapagliflozin 10 Mg p.o. daily -Stated that her blood sugars are ranging around 100 during mornings Plan: -Recommended to continue with the current management -Recommended to repeat labs within 3 months and follow-up (2) Diabetic neuropathy: Status: Acute Qualifiers: Diabetes mellitus complication detail: with other neurological complication Diabetes mellitus type: type 2 Qualified Code(s): E11.49 - Type 2 diabetes mellitus with other diabetic neurological complication Assessment & Plan: -Still complaining of mild burning sensations -Using gabapentin Plan: -Refilled gabapentin (3) Hyperlipidemia: Status: Acute Assessment & Plan: On atorvastatin 80 Mg p.o. at bedtime Plan: -Stable and will continue atorvastatin (4) Hypertension: Status: Acute Assessment & Plan: Blood pressures at the time of visit is 144/76 mmHg Patient endorsed that her blood pressures are within normal limits at home Plan: -Recommended to continue losartan, hydrochlorothiazide and metoprolol Additional Assessment Internal Medicine Attending Note: Case discussed with and agree with note and management plan of Resident Physician as per Resident's Note above. Issues of concern for present visit are as follows: Follow-up visit. Diabetes self-care reviewed including diet, exercise, footcare, eye care. Noting joint pains in hands but not armani neuropathy. He is using gabapentin for peripheral neuropathy. Tolerating insulin. Blood pressure elevated today. Patient was normotensive at prior visit. We will hold off on making any changes to the antihypertensive regimen and reassess in 2 to 4 weeks. Rodriguez Johnston MD Physician Billing Established Patient Established Patient: E/M Level 3-CPT 20856 Office Procedures [facility] Level of Care Nursing/Assessment Patient Status: Established Patient Nursing Assessment/Reassessment: Medication Reconciliation, Update PMH in EMR and Vital Signs Coordination of Care: Complex Care and Chronic Disease 1-5, Consent,records obtained, informed consent, Education Simp Pt/Fam, Results/Orders obtained and Staff clarify orders Established Patient Charge Established Patient Point Assignment: 90 Established Patient Point Charge: Level 3 (80-115)
== END 2024-04-21 15:25 | disposition home or self-care (01) ==
LOC: HODAHC 14:08
PROVIDERS: PCP Student in an Organized Health Care Education/Training Program; Referring Provider Student in an Organized Health Care Education/Training Program; Supervising Provider Internal Medicine; Visit Provider Student in an Organized Health Care Education/Training Program
DX: I10 Essential (primary) hypertension (principal); E11.42 Type 2 diabetes mellitus with diabetic polyneuropathy; Z79.4 Long term (current) use of insulin; Z79.84 Long term (current) use of oral hypoglycemic drugs; E78.5 Hyperlipidemia, unspecified
CPT/HCPCS: 99213; G0463

== ENCOUNTER 2024-05-05 13:36 | Outpatient (AMB) | payer MEDICAID, SELFPAY ==
--- NOTE | 2024-05-05 13:48 | PD.RESCLINIC ---
Vital Signs 05/05/24 13:49 Height 1.57 m Height Method Stated Weight 84.085 kg Weight Measurement Method Standing Scale BMI 34.1 BP 120/76 Blood Pressure Source Automatic Cuff Blood Pressure Location Left Upper Arm Position Sitting Respiration 14 Pulse 71 Pulse Source Monitor Temp 97.4 F Temp Source Oral Pulse Oximetry (%) 96 Oxygen Delivery Method Room Air Allergies/Meds Allergies & Medications Allergies No Known Allergies Allergy (Verified 05/05/24 13:50) Medication Reconciliation blood-glucose meter,continuous (FreeStyle Cecilia 3 [place]) #1 ea 01/14/24 [Rx Confirmed 05/05/24] blood-glucose sensor (FreeStyle Cecilia 3 Sensor device) #2 ea 01/14/24 [Rx Confirmed 05/05/24] atorvastatin 80 mg tablet 80 mg PO QHS #60 tabs 04/07/24 [Rx Confirmed 05/05/24] dapagliflozin propanediol 10 mg tablet 10 mg PO QAM #30 tabs 04/07/24 [Rx Confirmed 05/05/24] diclofenac sodium 1 % topical gel (Aleve (diclofenac)) 4 g topical QID #100 grams 04/07/24 [Rx Confirmed 05/05/24] insulin degludec 100 unit/mL (3 mL) subcutaneous pen (Tresiba FlexTouch U-100 insulin) 40 unit (0.4 mL) subcut QHS #15 mL 04/07/24 [Rx Confirmed 05/05/24] losartan 100 mg tablet 100 mg PO QDAY 2 months #60 tabs 04/07/24 [Rx Confirmed 05/05/24] metformin 1,000 mg tablet,extended release 24hr (osmotic) 1,000 mg PO BID #60 tabs 04/07/24 [Rx Confirmed 05/05/24] metoprolol tartrate 25 mg tablet 25 mg PO BID 2 months #120 tabs 04/07/24 [Rx Confirmed 05/05/24] omeprazole 40 mg capsule,delayed release 40 mg PO QDAY #30 caps 04/07/24 [Rx Confirmed 05/05/24] pen needle, diabetic 32 gauge x 1/4 (Comfort EZ Pen [place]) #100 ea 04/07/24 [Rx Confirmed 05/05/24] acetaminophen 650 mg tablet,extended release 650 mg PO Q8H PRN joint pain #90 tabs 04/21/24 [Rx Confirmed 02/07/25] hydrochlorothiazide 12.5 mg capsule 25 mg (2 x 12.5 mg) PO QDAY 30 days #60 caps 04/21/24 [Rx Confirmed 05/05/24] insulin lispro 100 unit/mL subcutaneous pen, sensor (Humalog Tempo Pen (U-100) Insulin) 3 unit (0.03 mL) subcut TID #15 mL 04/21/24 [Rx Confirmed 05/05/24] lidocaine 5 % topical patch 3 patch topical QDAY #30 ea 04/21/24 [Rx Confirmed 05/05/24] gabapentin 100 mg capsule 300 mg (3 x 100 mg) PO TID #90 caps 05/05/24 [Rx] GIOVANNA Intake Visit Data Collection New Patient or Established: Established Patient (seen at [facility] within 3 years) Seen by Clinical Staff ONLY (RN/GIOVANNA): No Pain Present Currently: No Pain scale:: 0 Pain Scale Used: Lujan-Steiner/Numerical PCP or OBGYN visit in last 3 months: Yes Hx Now: No Do You Feel Safe at Home: Yes Authorities Contacted: N/A Smoking Status Smoking Status: Never smoker Immunization / Flu Flu Vaccine in the Last 12 Months: No Flu Vaccine Exclusion Criteria: No Exclusion Criteria Past Medical History Social History SMOKING STATUS: Smoking status: Never smoker Patient Portal Questionaires Social History Tobacco History Smoking Status: Never smoker Domestic Abuse History Do You Feel Safe at Home: Yes Review of Systems Report any current symptoms Only answer those that you have currently: Past Medical History Past Medical History Have you ever been diagnosed with any of the following: History of Present Illness HPI Narrative This is a 53 y/o F with PMH of DMT2, HTN, peripheral neuropathy and obesity. This patient is not new to the practice however is new to me. SHe is a pleasant lady, retired that takes care of her granddaughter. I take care of her and daughter as well. Today patient complains of blood sugar control and constant headache. No other symptoms. 01/13: Patient here to today for follow up. Glucose remains high, fasting glucose in the 200s. No additional problems. 01/26: Patient is here today for diabetes follow up. Patient fasting glucose numbers are normalizing. Fasting glucose in the 120s. No more headaches. Patient feels better in the mornings. 03/03/24: Patient here for f/u. Feels much better, does complain of headaches and L eye pain. Patient does not have previous hx of glaucoma. Her glucose is better controlled, fasting in the 130s. Patient is complaint with medication. 05/05/2024: Patient her for follow up after change of medications. Patient feels much better today. Only complains of burning sensation of the sole of the feet. Headaches have improved. Patient is tolerating meal time insulin, no episode of hypoglycemia. 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 Sensation grossly intact. Assessment & Plan Diagnosis / Problem List (1) Insulin dependent diabetes mellitus: Status: Acute Assessment & Plan: uncontrolled, A1c was above 10 Home glucose log shows post-pandrial glucose below 180 after adding meal time insulin Plan: -decrease degludec from 40u to 35u -cont lispro 3u at meal time -cont metformin -cont log -repeat A1c and ACR in 3 months (2) Diabetic neuropathy: Status: Acute Qualifiers: Diabetes mellitus complication detail: with other neurological complication Diabetes mellitus type: type 2 Qualified Code(s): E11.49 - Type 2 diabetes mellitus with other diabetic neurological complication Assessment & Plan: BLE burning sensation of the soles, worse at night Plan: -increase gabapentin to 300mg TID -if patient fails we shall consider lyrica (3) Hyperlipidemia: Status: Acute Assessment & Plan: well controlled Plan: -cont statin therapy (4) Hypertension: Status: Acute Assessment & Plan: controlled after increasing HCTZ Plan: -continue current management -lifestyle modifications were recommended (5) GERD (gastroesophageal reflux disease): Status: Acute Qualifiers: Esophagitis presence: without esophagitis Qualified Code(s): K21.9 - Gastro-esophageal reflux disease without esophagitis Assessment & Plan: improvement in nocturnal cough Plan: -continue famotidine as prescribed Additional Assessment Internal Medicine Attending Note: Case discussed with and agree with note and management plan of Resident Physician as per Resident's Note above. Issues of concern for present visit are as follows: Follow-up visit. Diabetes self-care reviewed including diet, exercise, footcare, eye care, home glucose testing, insulin injections. Patient tolerating mealtime insulin. Hemoglobin A1c previously elevated 11.8 necessitating the mealtime insulin. Home readings are reviewed, much improved. May need to titrate basal insulin down by a few units. Note some improvement in diabetic neuropathy symptoms but still some burning sensation of the soles it is worse at night. We will titrate gabapentin up. Blood pressure under good control today with increasing hydrochlorothiazide. Other issues as noted. Rodriguez Johnston MD Physician Billing Established Patient Established Patient: E/M Level 3-CPT 64087 Office Procedures [facility] Level of Care Nursing/Assessment Patient Status: Established Patient Nursing Assessment/Reassessment: Medication Reconciliation, Update PMH in EMR and Vital Signs Coordination of Care: Complex Care and Chronic Disease 1-5, Consent,records obtained, informed consent, Education Simp Pt/Fam, Lab and Imaging orders and Staff clarify orders Established Patient Charge Established Patient Point Assignment: 100 Established Patient Point Charge: EP Level 3 (80-115)
[2024-05-05 13:49] VITALS: BP 120/76; PULSE 71; RESP 14; TEMP 36.3; O2SAT 96; BMI 34.1
== END 2024-05-05 14:53 | disposition home or self-care (01) ==
LOC: HODAHC 13:36
PROVIDERS: PCP Student in an Organized Health Care Education/Training Program; Referring Provider Student in an Organized Health Care Education/Training Program; Supervising Provider Internal Medicine; Visit Provider Student in an Organized Health Care Education/Training Program
DX: E11.40 Type 2 diabetes mellitus with diabetic neuropathy, unspecified (principal); Z79.4 Long term (current) use of insulin; E78.5 Hyperlipidemia, unspecified; I10 Essential (primary) hypertension; K21.9 Gastro-esophageal reflux disease without esophagitis; Z79.84 Long term (current) use of oral hypoglycemic drugs
CPT/HCPCS: 99213; G0463

== ENCOUNTER 2024-06-02 13:39 | Outpatient (AMB) | payer MEDICAID, SELFPAY ==
[2024-06-02 14:42] VITALS: BP 144/77; PULSE 62; RESP 16; TEMP 36.2; O2SAT 96; BMI 34.4
--- NOTE | 2024-06-02 14:42 | ACNOTE_ITS ---
Vital Signs 06/02/24 14:42 Height 1.57 m Height Method Stated Weight 84.935 kg Weight Measurement Method Standing Scale BMI 34.4 BP 144/77 H Blood Pressure Source Automatic Cuff Blood Pressure Location Left Upper Arm Position Sitting Respiration 16 Pulse 62 Pulse Source Monitor Temp 97.2 F Temp Source Temporal Artery Scan Pulse Oximetry (%) 96 Oxygen Delivery Method Room Air Allergies/Meds Allergies & Medications Allergies No Known Allergies Allergy (Verified 06/02/24 14:43) Medication Reconciliation blood-glucose meter,continuous (FreeStyle Cecilia 3 [place]) #1 ea 01/14/24 [Rx Confirmed 06/02/24] blood-glucose sensor (FreeStyle Cecilia 3 Sensor device) #2 ea 01/14/24 [Rx Confirmed 06/02/24] atorvastatin 80 mg tablet 80 mg PO QHS #60 tabs 04/07/24 [Rx Confirmed 06/02/24] dapagliflozin propanediol 10 mg tablet 10 mg PO QAM #30 tabs 04/07/24 [Rx Confirmed 06/02/24] diclofenac sodium 1 % topical gel (Aleve (diclofenac)) 4 g topical QID #100 grams 04/07/24 [Rx Confirmed 06/02/24] insulin degludec 100 unit/mL (3 mL) subcutaneous pen (Tresiba FlexTouch U-100 insulin) 40 unit (0.4 mL) subcut QHS #15 mL 04/07/24 [Rx Confirmed 06/02/24] losartan 100 mg tablet 100 mg PO QDAY 2 months #60 tabs 04/07/24 [Rx Confirmed 06/02/24] omeprazole 40 mg capsule,delayed release 40 mg PO QDAY #30 caps 04/07/24 [Rx Confirmed 06/02/24] pen needle, diabetic 32 gauge x 1/4 (Comfort EZ Pen [place]) #100 ea 04/07/24 [Rx Confirmed 06/02/24] acetaminophen 650 mg tablet,extended release 650 mg PO Q8H PRN joint pain #90 tabs 04/21/24 [Rx Confirmed 06/02/24] hydrochlorothiazide 12.5 mg capsule 25 mg (2 x 12.5 mg) PO QDAY 30 days #60 caps 04/21/24 [Rx Confirmed 06/02/24] insulin lispro 100 unit/mL subcutaneous pen, sensor (Humalog Tempo Pen (U-100) Insulin) 3 unit (0.03 mL) subcut TID #15 mL 04/21/24 [Rx Confirmed 06/02/24] lidocaine 5 % topical patch 3 patch topical QDAY #30 ea 04/21/24 [Rx Confirmed 06/02/24] gabapentin 100 mg capsule 300 mg (3 x 100 mg) PO TID #90 caps 06/02/24 [Rx Confirmed 06/02/24] metformin 1,000 mg tablet,extended release 24hr (osmotic) 1,000 mg PO BID #60 tabs 06/02/24 [Rx Confirmed 06/02/24] metoprolol tartrate 25 mg tablet 25 mg PO BID 1 month #60 tabs 06/02/24 [Rx Confirmed 06/02/24] MA Intake Visit Data Collection New Patient or Established: Established Patient (seen at [facility] within 3 years) Seen by Clinical Staff ONLY (RN/MA): No Pain Present Currently: No Pain scale:: 0 Pain Scale Used: Lujan-Steiner/Numerical Food Tray Assembler Required: No PCP or OBGYN visit in last 3 months: Yes Hx Now: No Do You Feel Safe at Home: Yes Authorities Contacted: N/A Smoking Status Smoking Status: Never smoker Immunization / Flu Flu Vaccine in the Last 12 Months: No Flu Vaccine Exclusion Criteria: No Exclusion Criteria Past Medical History Social History SMOKING STATUS: Smoking status: Never smoker Patient Portal Questionaires Social History Tobacco History Smoking Status: Never smoker Domestic Abuse History Do You Feel Safe at Home: Yes Review of Systems Report any current symptoms Only answer those that you have currently: Past Medical History Past Medical History Have you ever been diagnosed with any of the following: History of Present Illness HPI Narrative This is a 53 y/o F with PMH of DMT2, HTN, peripheral neuropathy and obesity. This patient is not new to the practice however is new to me. SHe is a pleasant lady, retired that takes care of her granddaughter. I take care of her and daughter as well. Today patient complains of blood sugar control and constant headache. No other symptoms. 01/13: Patient here to today for follow up. Glucose remains high, fasting glucose in the 200s. No additional problems. 01/26: Patient is here today for diabetes follow up. Patient fasting glucose numbers are normalizing. Fasting glucose in the 120s. No more headaches. Patient feels better in the mornings. 03/03/24: Patient here for f/u. Feels much better, does complain of headaches and L eye pain. Patient does not have previous hx of glaucoma. Her glucose is better controlled, fasting in the 130s. Patient is complaint with medication. 05/05/2024: Patient her for follow up after change of medications. Patient feels much better today. Only complains of burning sensation of the sole of the feet. Headaches have improved. Patient is tolerating meal time insulin, no episode of hypoglycemia. 06/02/2024: Patient came for follow-up visit. Patient is Norwegian-speaking and communicated with the help of passenger relations representative. During last visit, insulin degludec was changed from 40 units to 35 units. But patient noted increased blood sugars and 35 units, so changed her insulin back to 40 units. Patient is checking her blood sugars using finger sticks and reported that her fasting blood sugar is around 100. Patient was offered freestyle cecilia, Mounjaro but patient does not want to take any of them as of now. Still complaining of mild burning sensation of the feet Review of Systems Review of Systems Narrative Review of Systems: Constitutional: No Weight Change, No Fever, No Chills, No Night Sweats, No Fatigue, No Malaise ENT/Mouth: No Hearing Changes, No Ear Pain, No Nasal Congestion, No Sinus Pain, No Hoarseness, No sore throat, No Rhinorrhea, No Swallowing Difficulty Eyes: No Eye Pain, No Swelling, No Redness, No Foreign Body, No Discharge, No Vision Changes Cardiovascular: No Chest Pain, No SOB, No PND, No Dyspnea on Exertion, No Orthopnea, No Edema, No Palpitations Respiratory: No Cough, No Sputum, No Wheezing, No Dyspnea Gastrointestinal: No Nausea, No Vomiting, No Diarrhea, No Constipation, No Pain, No Heartburn, No Anorexia, No Dysphagia, No Hematochezia, No Melena, No Flatulence, No Jaundice Genitourinary: No Dysuria, No Urinary Frequency, No Hematuria, No Urinary Incontinence, No Urgency, No Flank Pain, No Urinary Flow Changes, No Hesitancy Musculoskeletal: No Arthralgias, No Myalgias, No Joint Swelling, No Joint Stiffness, No Back Pain, No Neck Pain, No Injury History Skin: No Skin Lesions, No Pruritis Neuro: No Weakness, No Numbness, Paresthesias, No Loss of Consciousness, No Syncope, No Dizziness, No Headache, No Coordination Changes, No Recent Falls Objective/Exam Narrative Physical exam: General: Awake. Overweight. HEENT: Normocephalic, atraumatic, mucous membranes moist. Heart: Regular rate and rhythm, no murmurs. Lungs: Clear to auscultation with no wheezing or crackles. Abdomen: Soft, nondistended, nontender, positive bowel sounds. ?No guarding or rebound tenderness. Neurologic: Alert and oriented x3, no gross neurological deficit, and patient able to move all 4 extremities. Extremities: No edema. Skin: No rash or ecchymoses. Assessment & Plan Diagnosis / Problem List (1) Insulin dependent diabetes mellitus: Status: Acute Assessment & Plan: A1c on 03/2024 is 11.8 Patient is currently on insulin Tresiba 40 units during nighttime, lispro 3 units with each meal, metformin thousand Mg p.o. twice daily, dapagliflozin 10 Mg p.o. daily -Stated that her blood sugars are ranging around 100 during mornings Plan: -Recommended freestyle cecilia but patient does not want to use it -Also ordered Mounjaro/Ozempic, patient is not interested as of now -Recommended to continue with the current management -Recommended to repeat labs within 3 months and follow-up (2) Diabetic neuropathy: Status: Acute Qualifiers: Diabetes mellitus type: type 2 Diabetes mellitus complication detail: with other neurological complication Qualified Code(s): E11.49 - Type 2 diabetes mellitus with other diabetic neurological complication Assessment & Plan: -Still complaining of mild burning sensations -Using gabapentin Plan: -Refilled gabapentin (3) Hyperlipidemia: Status: Acute Assessment & Plan: On atorvastatin 80 Mg p.o. at bedtime Plan: -Stable and will continue atorvastatin (4) Hypertension: Status: Acute Assessment & Plan: Blood pressures at the time of visit is 144/77 mmHg Patient endorsed that her blood pressures are within normal limits at home Plan: -Recommended to continue losartan, hydrochlorothiazide and metoprolol Office Procedures [facility] Level of Care Nursing/Assessment Patient Status: Established Patient Nursing Assessment/Reassessment: Medication Reconciliation, Update PMH in EMR and Vital Signs Coordination of Care: Complex Care and Chronic Disease 1-5, Consent,records obtained, informed consent, Education Simp Pt/Fam, Lab and Imaging orders and Staff clarify orders Established Patient Charge Established Patient Point Assignment: 100 Established Patient Point Charge: EP Level 3 (80-115)
== END 2024-06-02 14:23 | disposition home or self-care (01) ==
LOC: HODAHC 13:39
PROVIDERS: PCP Student in an Organized Health Care Education/Training Program; Referring Provider Student in an Organized Health Care Education/Training Program; Supervising Provider Internal Medicine; Visit Provider Student in an Organized Health Care Education/Training Program
DX: E11.40 Type 2 diabetes mellitus with diabetic neuropathy, unspecified (principal); Z79.4 Long term (current) use of insulin; E78.5 Hyperlipidemia, unspecified; I10 Essential (primary) hypertension
CPT/HCPCS: 99213; G0463

== ENCOUNTER 2024-07-21 13:46 | Outpatient (AMB) | payer MEDICAID, SELFPAY ==
--- NOTE | 2024-07-21 15:38 | ACNOTE_ITS ---
Vital Signs 07/21/24 15:39 Height 1.57 m Height Method Stated Weight 85.389 kg Weight Measurement Method Standing Scale BMI 34.6 BP 162/77 H Blood Pressure Source Automatic Cuff Blood Pressure Location Right Upper Arm Position Sitting Respiration 18 Pulse 68 Pulse Source Monitor Temp 98.2 F Temp Source Temporal Artery Scan Pulse Oximetry (%) 95 Oxygen Delivery Method Room Air Allergies/Meds Allergies & Medications Allergies No Known Allergies Allergy (Verified 08/03/24 15:08) Medication Reconciliation blood-glucose sensor (FreeStyle Cecilia 3 Sensor device) #2 ea 01/14/24 [Rx Confir med 08/03/24] blood-glucose,tractor distributor,cont (FreeStyle Cecilia 3 [place]) #1 ea 01/14/24 [Rx Confirmed 08/03/24] atorvastatin 80 mg tablet 80 mg PO QHS #60 tabs 04/07/24 [Rx Confirmed 08/03/24] dapagliflozin propanediol 10 mg tablet 10 mg PO QAM #30 tabs 04/07/24 [Rx Confirmed 08/03/24] diclofenac sodium 1 % topical gel (Aleve (diclofenac)) 4 g topical QID #100 grams 04/07/24 [Rx Confirmed 08/03/24] losartan 100 mg tablet 100 mg PO QDAY 2 months #60 tabs 04/07/24 [Rx Confirmed 08/03/24] omeprazole 40 mg capsule,delayed release 40 mg PO QDAY #30 caps 04/07/24 [Rx Confirmed 08/03/24] pen needle, diabetic 32 gauge x 1/4 (Comfort EZ Pen [place]) #100 ea 04/07/24 [Rx Confirmed 08/03/24] acetaminophen 650 mg tablet,extended release 650 mg PO Q8H PRN joint pain #90 tabs 04/21/24 [Rx Confirmed 08/03/24] lidocaine 5 % topical patch 3 patch topical QDAY #30 ea 04/21/24 [Rx Confirmed 08/03/24] gabapentin 100 mg capsule 300 mg (3 x 100 mg) PO TID #90 caps 06/02/24 [Rx Confirmed 08/03/24] metformin 1,000 mg tablet,extended release 24hr (osmotic) 1,000 mg PO BID #60 tabs 06/02/24 [Rx Confirmed 08/03/24] metoprolol tartrate 25 mg tablet 25 mg PO BID 1 month #60 tabs 06/02/24 [Rx Confirmed 08/03/24] blood sugar diagnostic (FreeStyle Test strips) #100 ea 07/21/24 [Rx Confirmed 08/03/24] diphenhydramine HCl 2 % topical gel 1 applic topical BID PRN skin irritation #103 mL 07/21/24 [Rx Confirmed 08/03/24] lancets 28 gauge (FreeStyle Lancets) #100 ea 07/21/24 [Rx Confirmed 08/03/24] chlorthalidone 15 mg tablet 15 mg PO QDAY #30 tabs 08/03/24 [Rx Confirmed 08/03/24] insulin degludec 100 unit/mL (3 mL) subcutaneous pen (Tresiba FlexTouch U-100 insulin) 40 unit (0.4 mL) subcut QHS #15 mL 08/03/24 [Rx Confirmed 08/03/24] insulin lispro 100 unit/mL subcutaneous pen, sensor (Humalog Tempo Pen (U-100) Insulin) 3 unit (0.03 mL) subcut TID #15 mL 08/03/24 [Rx Confirmed 08/03/24] MA Intake Visit Data Collection New Patient or Established: Established Patient (seen at [facility] within 3 years) Seen by Clinical Staff ONLY (RN/MA): No Pain Present Currently: No Pain scale:: 0 Pain Scale Used: Lujan-Steiner/Numerical Wheel Blocker Required: No PCP or OBGYN visit in last 3 months: No Do You Feel Safe at Home: Yes Authorities Contacted: N/A Smoking Status Smoking Status: Never smoker Immunization / Flu Flu Vaccine in the Last 12 Months: No Flu Vaccine Exclusion Criteria: No Exclusion Criteria Past Medical History Social History SMOKING STATUS: Smoking status: Never smoker Patient Portal Questionaires Social History Tobacco History Smoking Status: Never smoker Domestic Abuse History Do You Feel Safe at Home: Yes Review of Systems Report any current symptoms Only answer those that you have currently: Past Medical History Past Medical History Have you ever been diagnosed with any of the following: History of Present Illness HPI Narrative Patient here for follow up. Feeling well, continues to struggle with diabetes. No additional complaints at this time. Review of Systems Review of Systems Systems Reviewed: All systems reviewed, normal except as documented Objective/Exam Narrative Physical exam: Constitutional: AOx3, able to speak full sentences HEENT: NC/AT, PERRLA, oral mucosa moist, neck supple CVS: RRR, S1-S2 present, no murmurs RESP: CTAB GI: non distended, non tender to palpation, NBS MSK: full ROM, no peripheral edema, peripheral pulses present Skin: warm and dry, no rashes Neuro: city library director II-XII grossly intact. Sensation grossly intact. Assessment & Plan Diagnosis / Problem List (1) Insulin dependent diabetes mellitus: Status: Acute Assessment & Plan: A1c on 03/2024 is 11.8 A1c on 07/07/2024 is 11.0 Urine protein/creat ratio was 159 Plan: -adjustments were made from insulin increased long acting and short acting -Recommended to continue with the current management -Recommended to repeat labs within 3 months and follow-up (2) Diabetic neuropathy: Status: Acute Qualifiers: Diabetes mellitus type: type 2 Diabetes mellitus complication detail: with other neurological complication Qualified Code(s): E11.49 - Type 2 diabetes mellitus with other diabetic neurological complication Assessment & Plan: -Still complaining of mild burning sensations -Using gabapentin Plan: -Refilled gabapentin (3) Hyperlipidemia: Status: Acute Plan: -Stable and will continue atorvastatin (4) Hypertension: Status: Acute Plan: continue losartan, hydrochlorothiazide and metoprolol Office Procedures [facility] Level of Care Nursing/Assessment Patient Status: Established Patient Nursing Assessment/Reassessment: Medication Reconciliation, Update PMH in EMR and Vital Signs Coordination of Care: Complex Care and Chronic Disease 1-5, Consent,records obtained, informed consent, Education Simp Pt/Fam and Staff clarify orders Established Patient Charge Established Patient Point Assignment: 85 Established Patient Point Charge: EP Level 3 (80-115)
[2024-07-21 15:39] VITALS: BP 162/77; PULSE 68; RESP 18; TEMP 36.8; O2SAT 95; BMI 34.6
== END 2024-07-21 14:35 | disposition home or self-care (01) ==
LOC: HODAHC 13:46
PROVIDERS: PCP Student in an Organized Health Care Education/Training Program; Referring Provider Student in an Organized Health Care Education/Training Program; Supervising Provider Internal Medicine; Visit Provider Student in an Organized Health Care Education/Training Program
DX: E11.40 Type 2 diabetes mellitus with diabetic neuropathy, unspecified (principal); E78.5 Hyperlipidemia, unspecified; I10 Essential (primary) hypertension; Z79.4 Long term (current) use of insulin
CPT/HCPCS: 99213; G0463

== ENCOUNTER 2024-08-03 13:34 | Outpatient (AMB) | payer MEDICAID, SELFPAY ==
--- NOTE | 2024-08-03 14:03 | ACNOTE_ITS ---
Vital Signs 08/03/24 15:07 Height 1.57 m Height Method Stated Weight 86.353 kg Weight Measurement Method Standing Scale BMI 35.0 BP 146/74 H Blood Pressure Source Automatic Cuff Blood Pressure Location Right Upper Arm Position Sitting Respiration 18 Pulse 64 Pulse Source Monitor Temp 98.2 F Temp Source Temporal Artery Scan Pulse Oximetry (%) 93 L Oxygen Delivery Method Room Air Allergies/Meds Allergies & Medications Allergies No Known Allergies Allergy (Verified 08/18/24 13:58) Medication Reconciliation blood-glucose sensor (FreeStyle Cecilia 3 Sensor device) #2 ea 01/14/24 [Rx Conf irmed 08/18/24] blood-glucose,drywall sander,cont (FreeStyle Cecilia 3 [place]) #1 ea 01/14/24 [Rx Confirmed 08/18/24] diclofenac sodium 1 % topical gel (Aleve (diclofenac)) 4 g topical QID #100 grams 04/07/24 [Rx Confirmed 08/18/24] pen needle, diabetic 32 gauge x 1/4 (Comfort EZ Pen [place]) #100 ea 04/07/24 [Rx Confirmed 08/18/24] acetaminophen 650 mg tablet,extended release 650 mg PO Q8H PRN joint pain #90 tabs 04/21/24 [Rx Confirmed 08/18/24] lidocaine 5 % topical patch 3 patch topical QDAY #30 ea 04/21/24 [Rx Confirmed 08/18/24] blood sugar diagnostic (FreeStyle Test strips) #100 ea 07/21/24 [Rx Confirmed 08/18/24] diphenhydramine HCl 2 % topical gel 1 applic topical BID PRN skin irritation #103 mL 07/21/24 [Rx Confirmed 08/18/24] lancets 28 gauge (FreeStyle Lancets) #100 ea 07/21/24 [Rx Confirmed 08/18/24] atorvastatin 80 mg tablet 80 mg PO QHS #60 tabs 08/18/24 [Rx] chlorthalidone 15 mg tablet 15 mg PO QDAY #30 tabs 08/18/24 [Rx] dapagliflozin propanediol 10 mg tablet 10 mg PO QAM #30 tabs 08/18/24 [Rx] gabapentin 100 mg capsule 300 mg (3 x 100 mg) PO TID #90 caps 08/18/24 [Rx] insulin degludec 100 unit/mL (3 mL) subcutaneous pen (Tresiba FlexTouch U-100 insulin) 40 unit (0.4 mL) subcut QHS #15 mL 08/18/24 [Rx] insulin lispro 100 unit/mL subcutaneous pen, sensor (Humalog Tempo Pen (U-100) Insulin) 3 unit (0.03 mL) subcut TID #15 mL 08/18/24 [Rx] losartan 100 mg tablet 100 mg PO QDAY 2 months #60 tabs 08/18/24 [Rx] metformin 1,000 mg tablet,extended release 24hr (osmotic) 1,000 mg PO BID #60 tabs 08/18/24 [Rx] metoprolol tartrate 25 mg tablet 25 mg PO BID 1 month #60 tabs 08/18/24 [Rx] omeprazole 40 mg capsule,delayed release 40 mg PO QDAY #30 caps 08/18/24 [Rx] MA Intake Visit Data Collection New Patient or Established: Established Patient (seen at [facility] within 3 years) Seen by Clinical Staff ONLY (RN/MA): No Pain Present Currently: No Pain scale:: 0 Pain Scale Used: Lujan-Steiner/Numerical Regional Sales Engineer Required: Yes PCP or OBGYN visit in last 3 months: No Hx Now: No Do You Feel Safe at Home: Yes Authorities Contacted: N/A Smoking Status Smoking Status: Never smoker Immunization / Flu Flu Vaccine in the Last 12 Months: No Flu Vaccine Exclusion Criteria: No Exclusion Criteria Past Medical History Social History SMOKING STATUS: Smoking status: Never smoker Patient Portal Questionaires Social History Tobacco History Smoking Status: Never smoker Domestic Abuse History Do You Feel Safe at Home: Yes Review of Systems Report any current symptoms Only answer those that you have currently: Past Medical History Past Medical History Have you ever been diagnosed with any of the following: History of Present Illness HPI Narrative Patient here today complains of AL hip pain and knee pain. More than 6 months with this pain. Denies any trauma. NSAIDs not improving pain. Denies any other symptoms. Review of Systems Review of Systems Systems Reviewed: All systems reviewed, normal except as documented Objective/Exam Narrative Physical exam: Constitutional: AOx3, able to speak full sentences HEENT: NC/AT, PERRLA, oral mucosa moist, neck supple CVS: RRR, S1-S2 present, no murmurs RESP: CTAB GI: non distended, non tender to palpation, NBS MSK: full ROM, no peripheral edema, peripheral pulses present, antalgic gait Skin: warm and dry, no rashes Neuro: education reviewer II-XII grossly intact. Sensation grossly intact. Assessment & Plan Diagnosis / Problem List (1) Arthritis: Status: Acute Assessment & Plan: AL hip and AL knee pain Patient stated she has hx of OA in the past. Plan: -AL hip XR -AL knee XR -f/u for results -OTC meds for pain Physician Billing Established Patient Established Patient: E/M Level 3-CPT 91792 Office Procedures [facility] Level of Care Nursing/Assessment Patient Status: Established Patient Nursing Assessment/Reassessment: Medication Reconciliation, Update PMH in EMR and Vital Signs Coordination of Care: Complex Care and Chronic Disease 1-5, Consent,records obtained, informed consent, Education Simp Pt/Fam, Lab and Imaging orders and Staff clarify orders Established Patient Charge Established Patient Point Assignment: 100 Established Patient Point Charge: EP Level 3 (80-115)
[2024-08-03 15:07] VITALS: BP 146/74; PULSE 64; RESP 18; TEMP 36.8; O2SAT 93; BMI 35.0
== END 2024-08-03 14:17 | disposition home or self-care (01) ==
LOC: HODAHC 13:34
PROVIDERS: PCP Student in an Organized Health Care Education/Training Program; Referring Provider Student in an Organized Health Care Education/Training Program; Supervising Provider Internal Medicine; Visit Provider Student in an Organized Health Care Education/Training Program
DX: M25.552 Pain in left hip (principal); M25.551 Pain in right hip; M25.562 Pain in left knee; M25.561 Pain in right knee; M19.90 Unspecified osteoarthritis, unspecified site
CPT/HCPCS: 99213; G0463

== ENCOUNTER → 2024-08-09 | Outpatient (CLI) | payer MEDICAID, SELFPAY ==
--- NOTE | 2024-08-09 08:36 | XR_ITS ---
Examination: AP bilateral knees single view Lateral right and left knees 2 views Oblique right and left knees 2 views TECHNIQUE: Bilateral AP knees standing single view Oblique lateral right knee, oblique lateral left knee 4 views total 5 views Exam date and time: August 09, 2024 0858 hours INDICATIONS: Patient fell July 29, 2024 with injury to both knees, bilateral knee pain FINDINGS: Moderate osteopenia No fracture or dislocation involving either knee IMPRESSION: No fracture or dislocation involving either knee
--- NOTE | 2024-08-09 08:36 | XR_ITS ---
Examination: Bilateral hips, AP pelvis, 5 views Technique: AP, lateral views both hips, AP pelvis, 5 views Exam date and time: August 09, 2024 0858 hours INDICATIONS: Patient fell July 29, 2024 with injury to both hips, bilateral hip pain. FINDINGS: Significant osteopenia No right or left hip fracture or hip dislocation Bones of the pelvis intact IMPRESSION: No acute hip or pelvic fracture
== END | disposition home or self-care (01) ==
LOC: CDIM 08:28
PROVIDERS: Referring Provider Student in an Organized Health Care Education/Training Program; Visit Provider Student in an Organized Health Care Education/Training Program
DX: S79.912A Unspecified injury of left hip, initial encounter (principal); S79.911A Unspecified injury of right hip, initial encounter; S89.92XA Unspecified injury of left lower leg, initial encounter; S89.91XA Unspecified injury of right lower leg, initial encounter; W19.XXXA Unspecified fall, initial encounter
CPT/HCPCS: 73523; 73562

== ENCOUNTER 2024-08-18 13:27 | Outpatient (AMB) | payer MEDICAID, SELFPAY ==
--- NOTE | 2024-08-18 13:57 | PD.RESCLINIC ---
Vital Signs 08/18/24 13:58 Height 1.57 m Height Method Stated Weight 85.332 kg Weight Measurement Method Standing Scale BMI 34.6 BP 150/74 H Blood Pressure Source Automatic Cuff Blood Pressure Location Right Upper Arm Position Sitting Respiration 18 Pulse 65 Pulse Source Monitor Temp 97.8 F Temp Source Temporal Artery Scan Pulse Oximetry (%) 95 Oxygen Delivery Method Room Air Allergies/Meds Allergies & Medications Allergies No Known Allergies Allergy (Verified 08/18/24 13:58) Medication Reconciliation blood-glucose sensor (FreeStyle Cecilia 3 Sensor device) #2 ea 01/14/24 [Rx Confirmed 08/18/24] blood-glucose,diesel locomotive engineer,cont (FreeStyle Cecilia 3 [place]) #1 ea 01/14/24 [Rx Confirmed 08/18/24] diclofenac sodium 1 % topical gel (Aleve (diclofenac)) 4 g topical QID #100 grams 04/07/24 [Rx Confirmed 08/18/24] pen needle, diabetic 32 gauge x 1/4 (Comfort EZ Pen Gable) #100 ea 04/07/24 [Rx Confirmed 08/18/24] acetaminophen 650 mg tablet,extended release 650 mg PO Q8H PRN joint pain #90 tabs 04/21/24 [Rx Confirmed 08/18/24] lidocaine 5 % topical patch 3 patch topical QDAY #30 ea 04/21/24 [Rx Confirmed 08/18/24] blood sugar diagnostic (FreeStyle Test strips) #100 ea 07/21/24 [Rx Confirmed 08/18/24] diphenhydramine HCl 2 % topical gel 1 applic topical BID PRN skin irritation #103 mL 07/21/24 [Rx Confirmed 08/18/24] lancets 28 gauge (FreeStyle Lancets) #100 ea 07/21/24 [Rx Confirmed 08/18/24] atorvastatin 80 mg tablet 80 mg PO QHS #60 tabs 08/18/24 [Rx] chlorthalidone 15 mg tablet 15 mg PO QDAY #30 tabs 08/18/24 [Rx] dapagliflozin propanediol 10 mg tablet 10 mg PO QAM #30 tabs 08/18/24 [Rx] gabapentin 100 mg capsule 300 mg (3 x 100 mg) PO TID #90 caps 08/18/24 [Rx] insulin degludec 100 unit/mL (3 mL) subcutaneous pen (Tresiba FlexTouch U-100 insulin) 40 unit (0.4 mL) subcut QHS #15 mL 08/18/24 [Rx] insulin lispro 100 unit/mL subcutaneous pen, sensor (Humalog Tempo Pen (U-100) Insulin) 3 unit (0.03 mL) subcut TID #15 mL 08/18/24 [Rx] losartan 100 mg tablet 100 mg PO QDAY 2 months #60 tabs 08/18/24 [Rx] metformin 1,000 mg tablet,extended release 24hr (osmotic) 1,000 mg PO BID #60 tabs 08/18/24 [Rx] metoprolol tartrate 25 mg tablet 25 mg PO BID 1 month #60 tabs 08/18/24 [Rx] omeprazole 40 mg capsule,delayed release 40 mg PO QDAY #30 caps 08/18/24 [Rx] MA Intake Visit Data Collection New Patient or Established: Established Patient (seen at [facility] within 3 years) Seen by Clinical Staff ONLY (RN/MA): No Pain Present Currently: No Pain scale:: 0 Pain Scale Used: Lujan-Steiner/Numerical Veterinary Physiologist Required: No PCP or OBGYN visit in last 3 months: No Hx Now: No Do You Feel Safe at Home: Yes Authorities Contacted: N/A Smoking Status Smoking Status: Never smoker Immunization / Flu Flu Vaccine in the Last 12 Months: No Flu Vaccine Exclusion Criteria: No Exclusion Criteria Past Medical History Social History SMOKING STATUS: Smoking status: Never smoker Patient Portal Questionaires Social History Tobacco History Smoking Status: Never smoker Domestic Abuse History Do You Feel Safe at Home: Yes Review of Systems Report any current symptoms Only answer those that you have currently: Past Medical History Past Medical History Have you ever been diagnosed with any of the following: History of Present Illness HPI Narrative Patient is here today for XR results. Patient continues to have Knee pain and hip pain. Denies any other symptoms today. Review of Systems Review of Systems Systems Reviewed: All systems reviewed, normal except as documented Objective/Exam Narrative Physical exam: Constitutional: AOx3, able to speak full sentences HEENT: NC/AT, PERRLA, oral mucosa moist, neck supple CVS: RRR, S1-S2 present, no murmurs RESP: CTAB GI: non distended, non tender to palpation, NBS MSK: full ROM, no peripheral edema, peripheral pulses present, antalgic gait Skin: warm and dry, no rashes Neuro: picking table worker II-XII grossly intact. Sensation grossly intact. Assessment & Plan Diagnosis / Problem List (1) Arthritis: Status: Acute Assessment & Plan: XR showed no fractures, no significant evidence of OA Plan: -diclofena cream sent -OTC meds for pain -weight loss regiment recommended Office Procedures [facility] Level of Care Nursing/Assessment Patient Status: Established Patient Nursing Assessment/Reassessment: Medication Reconciliation, Update PMH in EMR and Vital Signs Coordination of Care: Complex Care and Chronic Disease 1-5, Consent,records obtained, informed consent, Education Simp Pt/Fam and Staff clarify orders Established Patient Charge Established Patient Point Assignment: 85 Established Patient Point Charge: EP Level 3 (80-115)
[2024-08-18 13:58] VITALS: BP 150/74; PULSE 65; RESP 18; TEMP 36.6; O2SAT 95; BMI 34.6
== END 2024-08-18 14:19 | disposition home or self-care (01) ==
LOC: HODAHC 13:27
PROVIDERS: Supervising Provider Internal Medicine; Visit Provider Student in an Organized Health Care Education/Training Program
DX: M25.569 Pain in unspecified knee (principal); M25.559 Pain in unspecified hip
CPT/HCPCS: 99213; G0463

== ENCOUNTER 2024-10-11 10:03 | Outpatient (AMB) | payer MEDICAID, SELFPAY ==
--- NOTE | 2024-10-11 10:15 | ACNOTE_ITS ---
Vital Signs 10/11/24 10:16 Height 1.57 m Height Method Stated Weight 86.183 kg Weight Measurement Method Standing Scale BMI 34.9 BP 180/77 H Blood Pressure Source Automatic Cuff Blood Pressure Location Right Upper Arm Position Sitting Respiration 18 Pulse 70 Pulse Source Monitor Temp 97.6 F Temp Source Temporal Artery Scan Pulse Oximetry (%) 94 L Oxygen Delivery Method Room Air Allergies/Meds Allergies & Medications Allergies No Known Allergies Allergy (Verified 10/11/24 10:16) Medication Reconciliation blood-glucose sensor (FreeStyle Cecilia 3 Sensor device) #2 ea 01/14/24 [Rx Conf irmed 10/11/24] blood-glucose,load out supervisor,cont (FreeStyle Cecilia 3 [place]) #1 ea 01/14/24 [Rx Confirmed 10/11/24] diclofenac sodium 1 % topical gel (Aleve (diclofenac)) 4 g topical QID #100 grams 04/07/24 [Rx Confirmed 10/11/24] acetaminophen 650 mg tablet,extended release 650 mg PO Q8H PRN joint pain #90 tabs 04/21/24 [Rx Confirmed 10/11/24] lidocaine 5 % topical patch 3 patch topical QDAY #30 ea 04/21/24 [Rx Confirmed 10/11/24] blood sugar diagnostic (FreeStyle Test strips) #100 ea 07/21/24 [Rx Confirmed 10/11/24] diphenhydramine HCl 2 % topical gel 1 applic topical BID PRN skin irritation #103 mL 07/21/24 [Rx Confirmed 10/11/24] lancets 28 gauge (FreeStyle Lancets) #100 ea 07/21/24 [Rx Confirmed 10/11/24] atorvastatin 80 mg tablet 80 mg PO QHS #60 tabs 08/18/24 [Rx Confirmed 10/11/24] dapagliflozin propanediol 10 mg tablet 10 mg PO QAM #30 tabs 08/18/24 [Rx Confirmed 10/11/24] gabapentin 100 mg capsule 300 mg (3 x 100 mg) PO TID #90 caps 08/18/24 [Rx Confirmed 10/11/24] insulin degludec 100 unit/mL (3 mL) subcutaneous pen (Tresiba FlexTouch U-100 insulin) 40 unit (0.4 mL) subcut QHS #15 mL 08/18/24 [Rx Confirmed 10/11/24] insulin lispro 100 unit/mL subcutaneous pen, sensor (Humalog Tempo Pen (U-100) Insulin) 3 unit (0.03 mL) subcut TID #15 mL 08/18/24 [Rx Confirmed 10/11/24] losartan 100 mg tablet 100 mg PO QDAY 2 months #60 tabs 08/18/24 [Rx Confirmed 10/11/24] metformin 1,000 mg tablet,extended release 24hr (osmotic) 1,000 mg PO BID #60 tabs 08/18/24 [Rx Confirmed 10/11/24] metoprolol tartrate 25 mg tablet 25 mg PO BID 1 month #60 tabs 08/18/24 [Rx Confirmed 10/11/24] omeprazole 40 mg capsule,delayed release 40 mg PO QDAY #30 caps 08/18/24 [Rx Confirmed 10/11/24] pen needle, diabetic 32 gauge x 1/4 (Comfort EZ Pen [place]) #100 ea 10/03/24 [Rx Confirmed 10/11/24] artificial tears(hjzwfzb-[id number]-[id number]) 0.1 %-0.3 %-0.2 % eye drops 1 drp Both eyes BID 1 week #15 mL 10/11/24 [Rx] chlorthalidone 15 mg tablet 15 mg PO QDAY #30 tabs 10/11/24 [Rx] nitrofurantoin monohydrate/macrocrystals 100 mg capsule (Macrobid) 100 mg PO BID 5 days #10 caps 10/11/24 [Rx] prednisone 20 mg tablet 60 mg (3 x 20 mg) PO QDAY Leslie's Palsy 5 days #15 tabs 10/11/24 [Rx] MA Intake Visit Data Collection New Patient or Established: Established Patient (seen at [facility] within 3 years) Seen by Clinical Staff ONLY (RN/MA): No Pain Present Currently: No Pain scale:: 0 Pain Scale Used: Lujan-Steiner/Numerical Road Boss Required: No PCP or OBGYN visit in last 3 months: No Hx Now: No Do You Feel Safe at Home: Yes Authorities Contacted: N/A Smoking Status Smoking Status: Never smoker Immunization / Flu Flu Vaccine in the Last 12 Months: No Flu Vaccine Exclusion Criteria: No Exclusion Criteria Past Medical History Social History SMOKING STATUS: Smoking status: Never smoker Patient Portal Questionaires Social History Tobacco History Smoking Status: Never smoker Domestic Abuse History Do You Feel Safe at Home: Yes Review of Systems Report any current symptoms Only answer those that you have currently: Past Medical History Past Medical History Have you ever been diagnosed with any of the following: History of Present Illness HPI Narrative Patient is slovenian speaking and visit facilitated by registered health-care dot net developer. Patient was a walk- in visit today for complaints of left sided facial weakness for past 3 days. Denied any other weakness, slurred speech, balance deficits, vision/ hearing impairment and memory deficits. Upon exam patient had mild [grade 2] weakness on left face with no signs of vesicles on eye or ears. Patient also endorsed dysuria for the past 2 weeks. Patient was provided on education about Leslie's palsy, eye care and prescribed a course of prednisione and macrobid. Follow-up appointment in 1 week. Objective/Exam Narrative Physical exam: Constitutional Alert, oriented x 3 and comfortable HEENT Vision grossly intact. Patent nares. Trachea midline Respiratory Chest normal on inspection and clear auscultation bilaterally Cardiovascular S1 and S2 audible, RRR. No murmurs carotid bruit. No gross JVD. Abdominal Soft and non tender to palpation in all quadrants. BS + Genitourinary No bladder tenderness, no flank pain. Normal to palpation Musculoskeletal Extremities tone within normal limits. 1+ LE edema up to shins b/l. 2+ edema of hands B/L Neurological CN II - XII grossly intact. Grade 2 weakness of CNVII on Left. Extremity motor and sensation grossly intact. Skin Warm, dry and intact. No apparent lesions. Psychiatric Patient has good affect, is cooperative Assessment & Plan Diagnosis / Problem List (1) Leslie palsy: Status: Acute Assessment & Plan: Patient had acute onset of left facial droop 3 days ago which has now improved. On exam had grade 2 weakness of left facial nerve, no signs of vesicles on face or in ears. Plan: - Prednisone 60mg po daily for 5 days. - Artificial tears - Follow up in 1 week (2) UTI (urinary tract infection): Status: Acute Qualifiers: Urinary tract infection type: site unspecified Hematuria presence: without hematuria Qualified Code(s): N39.0 - Urinary tract infection, site not specified Assessment & Plan: Patient endorsed dysuria for the past 2 weeks Plan: - Macrobid 100mg po bid for 5 days (3) Hypertension: Status: Acute Qualifiers: Hypertension type: primary hypertension Qualified Code(s): I10 - Essential (primary) hypertension Assessment & Plan: Today BP 180/77. Patient had not taken her medication for the past 3 days and also has not gotten her Chlorthalidone at the pharmacy. Plan: - Losartan 100mg po stat - Metoprolol 25mg po stat. - Refilled Chlorthalidone - F/U in 1 week Plan Plan of care discussed with Attending Dr. Vickie Coy MD PGY 2 Disclaimer: This note was dictated by speech recognition. Minor errors in physician/allergy/immunology may be present due to voice recognition software. Office Procedures [facility] Level of Care Nursing/Assessment Patient Status: Established Patient Nursing Assessment/Reassessment: Medication Reconciliation, Update PMH in EMR and Vital Signs Coordination of Care: Complex Care and Chronic Disease 1-5, Consent,records obtained, informed consent, Education Simp Pt/Fam and Staff clarify orders Established Patient Charge Established Patient Point Assignment: 85 Established Patient Point Charge: EP Level 3 (80-115)
[2024-10-11 10:16] VITALS: BP 180/77; PULSE 70; RESP 18; TEMP 36.4; O2SAT 94; BMI 34.9
== END 2024-10-11 10:55 | disposition home or self-care (01) ==
LOC: HODAHC 10:03
PROVIDERS: Supervising Provider Internal Medicine
DX: N39.0 Urinary tract infection, site not specified (principal); G51.0 Bell's palsy; I10 Essential (primary) hypertension
CPT/HCPCS: 99213; G0463

== ENCOUNTER 2024-10-18 15:33 | Outpatient (AMB) | payer MEDICAID, SELFPAY ==
--- NOTE | 2024-10-18 16:17 | ACNOTE_ITS ---
Vital Signs 10/18/24 16:31 Height 1.57 m Height Method Stated Weight 62.823 kg Weight Measurement Method Standing Scale BMI 25.4 BP 96/67 Blood Pressure Source Automatic Cuff Blood Pressure Location Right Upper Arm Position Sitting Respiration 18 Pulse 77 Pulse Source Monitor Temp 98.2 F Temp Source Temporal Artery Scan Pulse Oximetry (%) 98 Oxygen Delivery Method Room Air Allergies/Meds Allergies & Medications Allergies No Known Allergies Allergy (Verified 10/18/24 16:32) Medication Reconciliation blood-glucose sensor (FreeStyle Cecilia 3 Sensor device) #2 ea 01/14/24 [Rx Confirmed 10/18/24] blood-glucose,supervisor shipping,cont (FreeStyle Cecilia 3 [place]) #1 ea 01/14/24 [Rx Confirmed 10/18/24] diclofenac sodium 1 % topical gel (Aleve (diclofenac)) 4 g topical QID #100 grams 04/07/24 [Rx Confirmed 10/18/24] acetaminophen 650 mg tablet,extended release 650 mg PO Q8H PRN joint pain #90 tabs 04/21/24 [Rx Confirmed 10/18/24] lidocaine 5 % topical patch 3 patch topical QDAY #30 ea 04/21/24 [Rx Confirmed 10/18/24] blood sugar diagnostic (FreeStyle Test strips) #100 ea 07/21/24 [Rx Confirmed 10/18/24] diphenhydramine HCl 2 % topical gel 1 applic topical BID PRN skin irritation #103 mL 07/21/24 [Rx Confirmed 10/18/24] lancets 28 gauge (FreeStyle Lancets) #100 ea 07/21/24 [Rx Confirmed 10/18/24] atorvastatin 80 mg tablet 80 mg PO QHS #60 tabs 08/18/24 [Rx Confirmed 10/18/24] dapagliflozin propanediol 10 mg tablet 10 mg PO QAM #30 tabs 08/18/24 [Rx Confirmed 10/18/24] gabapentin 100 mg capsule 300 mg (3 x 100 mg) PO TID #90 caps 08/18/24 [Rx Confirmed 10/18/24] insulin degludec 100 unit/mL (3 mL) subcutaneous pen (Tresiba FlexTouch U-100 insulin) 40 unit (0.4 mL) subcut QHS #15 mL 08/18/24 [Rx Confirmed 10/18/24] insulin lispro 100 unit/mL subcutaneous pen, sensor (Humalog Tempo Pen (U-100) Insulin) 3 unit (0.03 mL) subcut TID #15 mL 08/18/24 [Rx Confirmed 10/18/24] losartan 100 mg tablet 100 mg PO QDAY 2 months #60 tabs 08/18/24 [Rx Confirmed 10/18/24] metformin 1,000 mg tablet,extended release 24hr (osmotic) 1,000 mg PO BID #60 tabs 08/18/24 [Rx Confirmed 10/18/24] metoprolol tartrate 25 mg tablet 25 mg PO BID 1 month #60 tabs 08/18/24 [Rx Confirmed 10/18/24] omeprazole 40 mg capsule,delayed release 40 mg PO QDAY #30 caps 08/18/24 [Rx Confirmed 10/18/24] pen needle, diabetic 32 gauge x 1/4 (Comfort EZ Pen [place]) #100 ea 10/03/24 [Rx Confirmed 10/18/24] hydrochlorothiazide 12.5 mg capsule 25 mg (2 x 12.5 mg) PO QAM 30 days #60 caps 10/18/24 [Rx] MA Intake Visit Data Collection New Patient or Established: Established Patient (seen at [facility] within 3 years) Seen by Clinical Staff ONLY (RN/MA): No Pain Present Currently: No Pain scale:: 0 Pain Scale Used: Lujan-Steiner/Numerical Final Inspector Balance Wheel Required: No PCP or OBGYN visit in last 3 months: No Hx Now: No Do You Feel Safe at Home: Yes Authorities Contacted: N/A Smoking Status Smoking Status: Never smoker Immunization / Flu Flu Vaccine in the Last 12 Months: No Flu Vaccine Exclusion Criteria: No Exclusion Criteria Past Medical History Social History SMOKING STATUS: Smoking status: Never smoker Patient Portal Questionaires Social History Tobacco History Smoking Status: Never smoker Domestic Abuse History Do You Feel Safe at Home: Yes Review of Systems Report any current symptoms Only answer those that you have currently: Past Medical History Past Medical History Have you ever been diagnosed with any of the following: History of Present Illness HPI Narrative Patient is bruneian speaking and visit facilitated by registered health-care healthcare interpreter. Patient was a walk- in visit today for complaints of left sided facial weakness for past 3 days. Denied any other weakness, slurred speech, balance deficits, vision/ hearing impairment and memory deficits. Upon exam patient had mild [grade 2] weakness on left face with no signs of vesicles on eye or ears. Patient also endorsed dysuria for the past 2 weeks. Patient was provided on education about Leslie's palsy, eye care and prescribed a course of prednisione and macrobid. Follow-up appointment in 1 week. Follow-up 10/18/2024: Patient still has facial droop similar to last visit and currently is still taking a course of prednisone. However it has not worsened she is able to blink and swallow without difficulty. Her dysuria has also improved and she 2 more days to complete a 5-day course of Macrobid. At home her systolic blood pressures range from the 160s?180s and fasting blood glucose between 107?123. Patient instructed to make a log of her home blood pressure and sugar readings to bring to next appointment. Will increase HCTZ to 25 Mg p.o. daily, ordered renal panel, CBC, HbA1c, lipid panel and urease breath test. Follow-up in 1 month Assessment & Plan Diagnosis / Problem List (1) Leslie palsy: Status: Chronic Assessment & Plan: Patient had acute onset of left facial droop 3 days ago which has now improved. On exam had grade 2 weakness of left facial nerve, no signs of vesicles on face or in ears. No change in facial weakness. Complete course of prednisone and monitor for worsening of symptoms Plan: - To complete course of Prednisone - Artificial tears - Follow up in 1 month - Patient instructed if any worsening of symptoms to present to the ED (2) Hypertension: Status: Acute Qualifiers: Hypertension type: primary hypertension Qualified Code(s): I10 - Essential (primary) hypertension Assessment & Plan: Today BP 180/77. Patient had not taken her medication for the past 3 days and also has not gotten her Chlorthalidone at the pharmacy. Plan: - Losartan 100mg po stat - Metoprolol 25mg po stat. - Chlorthalidone was rejected by insurance - HCTZ 25 mg po daily - F/U in 1 month - patient instructed to make log book of blood pressures at home (3) GERD (gastroesophageal reflux disease): Status: Acute Qualifiers: Esophagitis presence: without esophagitis Qualified Code(s): K21.9 - Gastro-esophageal reflux disease without esophagitis Assessment & Plan: Patient reports epigastric pain before meals, she was on omeprazole chronically for 2 years which she was instructed to stop 1 week ago Plan: - Urea breath test (4) Diabetes type 2, uncontrolled: Status: Acute Qualifiers: Glycemic state: with hyperglycemia Qualified Code(s): E11.65 - Type 2 diabetes mellitus with hyperglycemia Assessment & Plan: Mar 2024 - Hba1c 11.8 % Plan: - Continue dapagliflozin 10mg po daily - Contine metformin 1g po BID - Continue insulin degludec 45U sc HS - Continue Insulin lispro 10u sc TIDWM - HbA1c, Lipid profile, cbc and renal panel ordered Office Procedures [facility] Level of Care Nursing/Assessment Patient Status: Established Patient Nursing Assessment/Reassessment: Medication Reconciliation, Update PMH in EMR and Vital Signs Coordination of Care: Complex Care and Chronic Disease 1-5, Consent,records obtained, informed consent, Education Simp Pt/Fam and Staff clarify orders Established Patient Charge Established Patient Point Assignment: 85 Established Patient Point Charge: Level 3 (80-115)
[2024-10-18 16:31] VITALS: BP 96/67; PULSE 77; RESP 18; TEMP 36.8; O2SAT 98; BMI 25.4
== END 2024-10-18 16:58 | disposition home or self-care (01) ==
PROVIDERS: Supervising Provider Internal Medicine
DX: G51.0 Bell's palsy (principal); I10 Essential (primary) hypertension; K21.9 Gastro-esophageal reflux disease without esophagitis; E11.65 Type 2 diabetes mellitus with hyperglycemia; Z79.84 Long term (current) use of oral hypoglycemic drugs; Z79.4 Long term (current) use of insulin
CPT/HCPCS: 99213; G0463